=== PATIENT | female | born 1990 | race Caucasian/White ===

== ENCOUNTER 2018-07-26 19:35 | Outpatient (CLI) | payer MEDICAID ==
[~2018-07-26] VITALS: Ht 167.6 cm; Wt 58.6 kg
[~2018-07-26 19:35] MED LIST: DOXY1TAB3 PO; PEDI18TA2 PO
[2018-07-26 20:28] VITALS: BP 110/65
[2018-07-26 20:40] LABS: MICROSCOPIC NOT IND
[2018-07-26 20:49] LABS: AMPHETAMINE SCREEN, URINE Negative (Negative); BARBITURATE SCREEN, URINE Negative (Negative); BENZODIAZEPINE SCREEN, URINE Negative (Negative); CANNABINOID SCREEN, URINE Negative (Negative); COCAINE SCREEN, URINE Negative (Negative); METHADONE SCREEN, URINE Negative (Negative); OPIATE SCREEN, URINE Negative (Negative)
== END 2018-07-26 21:45 | disposition home or self-care (01) ==
LOC: LDOP 19:35
PROVIDERS: ATTEND Obstetrics & Gynecology
DX: O26.893 Other specified pregnancy related conditions, third trimester (principal); R10.9 Unspecified abdominal pain; Z3A.39 39 weeks gestation of pregnancy
CPT/HCPCS: 59025; 80307; 81003; 87077; 87086; 99211; G0463

== ENCOUNTER 2018-08-06 11:47 | Outpatient (CLI) | payer MEDICAID ==
[~2018-08-06] VITALS: Ht 167.6 cm; Wt 58.2 kg
[2018-08-06 12:00] VITALS: BP 108/64
[2018-08-06 13:47] LABS: MICROSCOPIC INDICATED
[2018-08-06 13:58] LABS: AMPHETAMINE SCREEN, URINE Negative (Negative); BARBITURATE SCREEN, URINE Negative (Negative); BENZODIAZEPINE SCREEN, URINE Negative (Negative); CANNABINOID SCREEN, URINE Negative (Negative); COCAINE SCREEN, URINE Negative (Negative); METHADONE SCREEN, URINE Negative (Negative); OPIATE SCREEN, URINE Negative (Negative)
[2018-08-06] MEDS ORDERED: ONDA4TAB7 PO (14:54)
== END 2018-08-06 15:40 | disposition home or self-care (01) ==
LOC: LDOP 11:47
PROVIDERS: ATTEND Obstetrics & Gynecology
DX: O26.893 Other specified pregnancy related conditions, third trimester (principal); R10.2 Pelvic and perineal pain; Z3A.41 41 weeks gestation of pregnancy
CPT/HCPCS: 59025; 80307; 81001; 87086; 99211; G0463

== ENCOUNTER 2018-08-07 09:28 | Outpatient (CLI) | payer MEDICAID ==
[~2018-08-07] VITALS: Ht 167.6 cm; Wt 58.6 kg
[~2018-08-07 09:28] MED LIST changes: +ONDA4TAB7 PO
[2018-08-07 10:12] LABS: MICROSCOPIC NOT IND
[2018-08-07 10:17] VITALS: BP 103/63
== END 2018-08-07 10:49 | disposition home or self-care (01) ==
LOC: LDOP 09:28
PROVIDERS: ATTEND Obstetrics & Gynecology
DX: O42.913 Preterm premature rupture of membranes, unspecified as to length of time between rupture and onset of labor, third trimester (principal); Z3A.32 32 weeks gestation of pregnancy
CPT/HCPCS: 59025; 76819; 81003; 87086; 89060; 99211; G0463; Q0114

== ENCOUNTER 2018-08-25 08:08 | Outpatient (CLI) | payer MEDICAID ==
[~2018-08-25] VITALS: Ht 167.6 cm; Wt 59.5 kg
[2018-08-25 08:23] VITALS: BP 103/71
[2018-08-25 09:09] LABS: MICROSCOPIC NOT IND
== END 2018-08-25 10:08 | disposition home or self-care (01) ==
LOC: LDOP 08:08
PROVIDERS: ATTEND Obstetrics & Gynecology
DX: O26.893 Other specified pregnancy related conditions, third trimester (principal); M54.5 Low back pain; Z3A.35 35 weeks gestation of pregnancy
CPT/HCPCS: 59025; 81003; 87086; 99211; G0463